=== PATIENT | male | born 1945 | race Caucasian/White ===

== ENCOUNTER 2016-11-15 08:04 | Day surgery (SDC) | payer MEDICARE ==
[~2016-11-15] VITALS: Ht 167.6 cm; Wt 56.8 kg
[~2016-11-15 08:04] MED LIST: CeFAZolin 1 GM/DEXTROSE 50 ML IV ONE; HYDROmorphone HCL 2 MG TABLET PO ONE; LORazepam 2 MG/ML VIAL IVP PRN; OxyCODONE HCL/ACETAMINOPHEN 5-325 MG TABLET PO PRN; SODIUM CHLORIDE 0.9% 1,000 ML IV ONE; SODIUM CHLORIDE 0.9% 1,000 ML IV SCH
[2016-11-15] MEDS ORDERED: SODIUM CHLORIDE 0.9% 1,000 ML IV ONE ×4 (08:14→12:45)
[2016-11-15 09:10] LABS: BASOPHILS # (AUTO) 0.05 K/uL (0.00-0.20); BASOPHILS % (AUTO) 0.4 % (0.0-2.0); EOSINOPHILS % (AUTO) 0.97 % (1.0-6.0); HEMATOCRIT 36.9 % (41-53); HEMOGLOBIN 12.3 g/dL (13.5-17.5); LYMPHOCYTES # (AUTO) 0.4 K/uL (1.0-4.8); LYMPHOCYTES % (AUTO) 4.1 % (22.0-44.0); MEAN CORPUSCULAR HEMOGLOBIN 32.8 pg (26.0-34.0); MEAN CORPUSCULAR HGB CONC 33.3 G/dL (31.0-37.0); MEAN CORPUSCULAR VOLUME 99 fL (80-100); MONOCYTES # (AUTO) 0.8 K/uL (0.1-1.0); MONOCYTES % (AUTO) 7.1 % (2.0-9.0); NEUTROPHILS # (AUTO) 9.3 K/uL (1.8-7.7); PLATELET COUNT (AUTO) 265 K/uL (150-450); RED BLOOD CELL COUNT(AUTO) 3.75 MIL/uL (4.50-5.90); RED CELL DISTRIBUTION WIDTH 16.6 % (11.5-14.5); WHITE BLOOD COUNT (AUTO) 10.6 K/uL (4.5-11.0)
[2016-11-15 09:17] LABS: NEUTROPHILS % (AUTO) 87.4 % (40.0-70.0)
[2016-11-15 09:18] LABS: INR 1.2 (0.9-1.1); PROTHROMBIN TIME 12.5 SEC (9.4-11.6)
[2016-11-15] MEDS ORDERED: CeFAZolin 1 GM/DEXTROSE 50 ML IV ONE ×2 (09:19→15:00)
[2016-11-15 09:23] LABS: ALANINE AMINOTRANSFERASE 100 U/L (12-78); ALBUMIN 2.7 g/dL (3.4-5.0); ANION GAP 11 mmol/L (8-16); ASPARTATE AMINOTRANSFERASE 814 U/L (15-37); BILIRUBIN,TOTAL 3.9 mg/dL (0.1-1.0); CALCIUM, TOTAL 8.6 mg/dL (8.8-10.5); CARBON DIOXIDE 23 mmol/L (22-29); CHLORIDE 98 mmol/L (98-107); CREATININE 0.79 mg/dL (0.60-1.30); GLOMERULAR FILTR. RATE CALC > 60 mL/min (>60); POTASSIUM 3.8 mmol/L (3.5-5.1); SODIUM SERUM 132 mmol/L (136-145); TOTAL PROTEIN, SERUM 5.6 g/dL (6.4-8.2); UREA NITROGEN, BLOOD 9 mg/dL (7-18)
[2016-11-15] MEDS ORDERED: LORazepam 2 MG/ML VIAL ONE (10:29)
[2016-11-15] MEDS ORDERED: HEPARIN SODIUM 1000 UNITS/NS 500 ML ONE (10:44)
[2016-11-15] MEDS ORDERED: IODIXANOL 320 MG/ML 100 ML VIAL ONE (10:44)
[2016-11-15] MEDS ORDERED: LIDOCAINE HCL/PF 1% 30 ML VIAL ONE (10:44)
[2016-11-15 10:51] VITALS: BP 121/72
[2016-11-15] MEDS ORDERED: FentaNYL CITRATE-PF 100 MCG/2 ML VIAL ONE ×2 (11:08→11:51)
[2016-11-15] MEDS ORDERED: MIDAZOLAM HCL 2 MG/2 ML VIAL ONE ×2 (11:10→11:50)
[2016-11-15] MEDS ORDERED: IOHEXOL 300 MG/ML 50 ML VIAL ONE (11:31)
[2016-11-15] MEDS ORDERED: IOHEXOL 300 MG/ML 100 ML VIAL ONE (11:33)
[2016-11-15] MEDS ORDERED: IOHEXOL 300 MG/ML 100 ML VIAL IARTER ONE (11:45)
[2016-11-15] MEDS ORDERED: MIDAZOLAM HCL 2 MG/2 ML VIAL IVP ONE ×3 (11:45→12:00)
[2016-11-15] MEDS ORDERED: IOHEXOL 300 MG/ML 50 ML VIAL IARTER ONE (11:45)
[2016-11-15] MEDS ORDERED: HEPARIN SODIUM 1000 UNITS/NS 500 ML IV ONE (11:45)
[2016-11-15] MEDS ORDERED: IODIXANOL 320 MG/ML 100 ML VIAL IARTER ONE (11:45)
[2016-11-15] MEDS ORDERED: FentaNYL CITRATE-PF 100 MCG/2 ML VIAL IVP ONE ×3 (11:45→12:00)
[2016-11-15] MEDS ORDERED: LIDOCAINE HCL/PF 1% 30 ML VIAL INJ ONE (11:45)
[2016-11-15] MEDS ORDERED: HYDROmorphone 2 MG/ML SYRINGE IVP PRN (12:30)
[2016-11-15] MEDS ORDERED: ONDANSETRON HCL 4 MG/2 ML VIAL IVP PRN (12:30)
[2016-11-15] MEDS ORDERED: PROMETHAZINE HCL 25 MG TABLET PO PRN (12:30)
[2016-11-15] MEDS ORDERED: MAGNESIUM SULFATE 2 GM, MVI, ADULT NO.1 WITH VIT K 10 ML, THIAMINE HCL 100 MG, FOLIC AC... IV ONE ×5 (12:45)
[2016-11-15] MEDS ORDERED: HYDROmorphone 2 MG/ML SYRINGE ONE ×2 (12:59→15:02)
[2016-11-15] MEDS: HYDROmorphone 2 MG/ML SYRINGE IVP PRN ×2 (13:16→17:33)
[2016-11-15] MEDS ORDERED: SODIUM CHLORIDE 0.9% 250 ML IV ONE (15:15)
== END 2016-11-15 18:10 | disposition home or self-care (01) ==
LOC: SDS 08:04
PROVIDERS: ATTEND Radiology Diagnostic Radiology
DX: D3A.8 Other benign neuroendocrine tumors (principal); C78.7 Secondary malignant neoplasm of liver and intrahepatic bile duct; D64.9 Anemia, unspecified; F41.9 Anxiety disorder, unspecified; Z91.018 Allergy to other foods; Z90.49 Acquired absence of other specified parts of digestive tract; Z98.890 Other specified postprocedural states
CPT/HCPCS: 36415; 37243; 75726; 75774; 76937; 80053; 85025; 85610; 85730; 93005; 99152; 99153; C1760; C1769; C1892; J0690; J1170; J1644; J2060; J2250; J3010; J3411; J3475; J3490 ×3; J7030; J7050; Q9967 ×3; 36245